=== PATIENT | female | born 2000 | race Caucasian/White ===

== ENCOUNTER 2021-07-18 17:11 | Observation (INO) ==
[2021-07-18 18:06] LABS: Basophils % 0.2 %; Hematocrit 36.1 % (35.3-44.9); Hemoglobin 12.1 g/dL (11.5-15.4); Immature Granulocytes % 0.4 % (0-4); Lymphocytes # 2.7 K/mcL (0.6-4.6); Lymphocytes % 24.4 %; Mean Corpuscular HGB Conc 33.5 g/dL (31.6-35.5); Mean Corpuscular Hemoglobin 30.6 pg (28.0-33.3); Mean Corpuscular Volume 91.2 fL (83.0-100.0); Monocytes # 0.9 K/mcL (0.0-1.3); Monocytes % 8.4 %; Neutrophils # 7.4 K/mcL (1.6-8.9); Platelet Count 302 K/mcL (140-400); Protein/Creatinine Ratio,Urine 0.12 mg/mg (0.00-0.20); Red Blood Count 3.96 M/mcL (3.82-4.97); Red Cell Distribution Width 13.2 % (11.5-14.5); Segmented Neutrophils % 66.6 %; White Blood Count 11.1 K/mcL (4.3-11.1)
[2021-07-18 18:14] LABS: Alanine Aminotransferase 12 Units/L (7-52); Aspartate Amino Transferase 12 Units/L (13-39); Lactate Dehydrogenase 140 Units/L (140-271); Uric Acid 3.2 mg/dL (2.3-7.6); eGFR For African Americans > 60 (> 60); eGFR For Non-African Americans > 60 (> 60)
== END 2021-07-18 19:05 | disposition home or self-care (01) ==
LOC: 1NENULAB
PROVIDERS: ADMIT Obstetrics & Gynecology; ATTEND Obstetrics & Gynecology

== ENCOUNTER 2021-07-20 04:47 | Inpatient (IN) ==
[2021-07-20] MEDS ORDERED: Famotidine 20 MG/2 ML VIAL IVP PRN (04:50)
[2021-07-20] MEDS ORDERED: *HR* Nalbuphine 10 MG/ML AMPUL IV PRN (04:50)
[2021-07-20] MEDS ORDERED: Azithromycin 500 MG in 0.9 % Sodium Chloride 250 ML IVPB PRN (04:50)
[2021-07-20] MEDS ORDERED: *HR* FentaNYL (PF) 100 MCG/2 ML VIAL IVP PRN (04:50)
[2021-07-20] MEDS ORDERED: Ondansetron 4 MG/2 ML VIAL IVP PRN (04:50)
[2021-07-20] MEDS ORDERED: Metoclopramide 10 MG/2 ML VIAL IVP PRN (04:50)
[2021-07-20] MEDS ORDERED: Lidocaine 1% 20 ML MDV INFILT PRN (04:50)
[2021-07-20] MEDS ORDERED: Naloxone 0.4 MG/ML INJ IVP PRN (04:50)
[2021-07-20] MEDS ORDERED: Ringers Solution, Lactated 1,000 ML IVC SCH (05:00)
[2021-07-20 05:17] VITALS: BP 122/85; PULSE 115; TEMP 98
[2021-07-20 05:33] LABS: Basophils % 0.1 %; Eosinophils % 0.1 %; Hematocrit 38.9 % (35.3-44.9); Hemoglobin 12.7 g/dL (11.5-15.4); Immature Granulocytes % 0.3 % (0-4); Lymphocytes # 1.9 K/mcL (0.6-4.6); Lymphocytes % 23.5 %; Mean Corpuscular HGB Conc 32.6 g/dL (31.6-35.5); Mean Corpuscular Hemoglobin 30.2 pg (28.0-33.3); Mean Corpuscular Volume 92.6 fL (83.0-100.0); Mean Platelet Volume 10.1 fL (9.4-12.4); Monocytes # 0.6 K/mcL (0.0-1.3); Neutrophils # 5.5 K/mcL (1.6-8.9); Platelet Count 295 K/mcL (140-400); Red Cell Distribution Width 13.2 % (11.5-14.5)
[2021-07-20 05:40] LABS: Amphetamine Screen,Urine Negative ng/mL (Cutoff=1000); Barbiturate Screen,Urine Negative ng/mL (Cutoff=200); Benzodiazepines Screen,Urine Negative ng/mL (Cutoff=200); Cannabinoid Screen,Urine Negative ng/mL (Cutoff = 50); Cocaine Screen,Urine Negative ng/mL (Cutoff= 300); Creatinine,Urine 131 mg/dL; Opiate Screen,Urine Negative ng/mL (Cutoff=300); Phencyclidine Screen,Urine Negative ng/mL (Cutoff=25); Protein/Creatinine Ratio,Urine 0.15 mg/mg (0.00-0.20)
[2021-07-20 05:50] LABS: Alanine Aminotransferase 13 Units/L (7-52); Aspartate Amino Transferase 14 Units/L (13-39); BUN/Creatinine Ratio 11 (6-26); Blood Urea Nitrogen 7 mg/dL (6-20); Lactate Dehydrogenase 135 Units/L (140-271); Uric Acid 3.4 mg/dL (2.3-7.6); eGFR For African Americans > 60 (> 60); eGFR For Non-African Americans > 60 (> 60)
[2021-07-20 06:16] LABS: Influenza A PCR Negative (Negative); Influenza B PCR Negative (Negative); Resp. Syncytial Virus PCR Negative (Negative)
[2021-07-20 06:26] LABS: SARS-CoV-2 by PCR (In House) Negative (Negative)
[2021-07-20 06:56] LABS: Glucose 182 mg/dL (70-105)
== END 2021-07-20 09:10 | disposition home or self-care (01) | DRG 955 ==
LOC: 1NENULAB 04:47
PROVIDERS: ADMIT Student in an Organized Health Care Education/Training Program; ATTEND Student in an Organized Health Care Education/Training Program

== ENCOUNTER 2021-08-01 22:08 | Inpatient (IN) ==
[2021-08-01] MEDS ORDERED: Lidocaine 1% 20 ML MDV INFILT PRN (22:25)
[2021-08-01] MEDS ORDERED: Famotidine 20 MG/2 ML VIAL IVP PRN (22:25)
[2021-08-01] MEDS ORDERED: Metoclopramide 10 MG/2 ML VIAL IVP PRN (22:25)
[2021-08-01] MEDS ORDERED: Ondansetron 4 MG/2 ML VIAL IVP PRN (22:25)
[2021-08-01] MEDS ORDERED: miSOPROStoL 25 MCG TABLET PO PRN (22:25)
[2021-08-01] MEDS ORDERED: Naloxone 0.4 MG/ML INJ IVP PRN (22:25)
[2021-08-01] MEDS ORDERED: Azithromycin 500 MG in 0.9 % Sodium Chloride 250 ML IVPB PRN (22:25)
[2021-08-01] MEDS ORDERED: Ringers Solution, Lactated 1,000 ML IVC SCH (22:30)
[2021-08-01] MEDS ORDERED: *HR* FentaNYL (PF) 100 MCG/2 ML VIAL EP ONE (22:44)
[2021-08-01] MEDS ORDERED: Ropivacaine/PF 0.2% 20 ML VIAL EP ONE (22:44)
[2021-08-01] MEDS ORDERED: EPHEDrine 50 MG/ML VIAL IVP PRN (22:44)
[2021-08-01] MEDS ORDERED: Epidural Premix (fent/bupiv) 110 ML EP SCH (22:45)
[2021-08-01 22:50] LABS: Basophils % 0.1 %; Hematocrit 37.7 % (35.3-44.9); Hemoglobin 12.5 g/dL (11.5-15.4); Immature Granulocytes % 0.2 % (0-4); Lymphocytes % 19.5 %; Mean Corpuscular HGB Conc 33.2 g/dL (31.6-35.5); Mean Corpuscular Hemoglobin 30.3 pg (28.0-33.3); Mean Corpuscular Volume 91.3 fL (83.0-100.0); Mean Platelet Volume 10.1 fL (9.4-12.4); Monocytes # 0.8 K/mcL (0.0-1.3); Monocytes % 7.8 %; Neutrophils # 7.4 K/mcL (1.6-8.9); Platelet Count 294 K/mcL (140-400); Red Blood Count 4.13 M/mcL (3.82-4.97); Red Cell Distribution Width 13.4 % (11.5-14.5); Segmented Neutrophils % 72.4 %; White Blood Count 10.2 K/mcL (4.3-11.1)
[2021-08-01 22:52] LABS: Amphetamine Screen,Urine Negative ng/mL (Cutoff=1000); Barbiturate Screen,Urine Negative ng/mL (Cutoff=200); Benzodiazepines Screen,Urine Negative ng/mL (Cutoff=200); Cannabinoid Screen,Urine Negative ng/mL (Cutoff = 50); Cocaine Screen,Urine Negative ng/mL (Cutoff= 300); Opiate Screen,Urine Negative ng/mL (Cutoff=300); Phencyclidine Screen,Urine Negative ng/mL (Cutoff=25); Protein/Creatinine Ratio,Urine 0.13 mg/mg (0.00-0.20)
[2021-08-01 23:02] LABS: Alanine Aminotransferase 11 Units/L (7-52); Aspartate Amino Transferase 12 Units/L (13-39); BUN/Creatinine Ratio 13 (6-26); Blood Urea Nitrogen 10 mg/dL (6-20); Lactate Dehydrogenase 142 Units/L (140-271); Uric Acid 3.8 mg/dL (2.3-7.6); eGFR For African Americans > 60 (> 60); eGFR For Non-African Americans > 60 (> 60)
[2021-08-01 23:25] LABS: Influenza A PCR Negative (Negative); Influenza B PCR Negative (Negative); Resp. Syncytial Virus PCR Negative (Negative)
[2021-08-01 23:45] LABS: SARS-CoV-2 by PCR (In House) Negative (Negative)
[2021-08-02] MEDS ORDERED: Oxytocin 20 units/ LR 1000 mL 20 UNIT/1,000 ML BAG IVC SCH ×2 (09:00→18:33)
[2021-08-02] MEDS: *HR* Nalbuphine 10 MG/ML AMPUL IV PRN ×2 (10:40→14:01)
[2021-08-02] MEDS ORDERED: *HR* Labetalol 20 MG/4 ML SYRINGE IVP ONE ×2 (15:35→15:36)
[2021-08-02] MEDS ORDERED: Calcium Gluconate 1,000 MG/10 ML VIAL IVP PRN ×2 (15:44→18:33)
[2021-08-02] MEDS ORDERED: Magnesium Sulf 20 gm/SW 500mL 20 GM/500 ML IV.SOLN IVC SCH ×2 (15:45→18:33)
[2021-08-02] MEDS ORDERED: Benzocaine/Menthol 56 GM AEROSOL SPRAY TP PRN (18:33)
[2021-08-02] MEDS ORDERED: Rho Immune Globulin 1,500 UNIT SYRINGE IM PRN (18:33)
[2021-08-02] MEDS ORDERED: Lanolin 7 G OINT...G. TP PRN (18:33)
[2021-08-02] MEDS ORDERED: Ondansetron ODT 4 MG TAB.RAPDIS SL PRN (18:33)
[2021-08-02] MEDS ORDERED: Measles/Mumps/Rubella Vacc 0.5 ML VIAL SQ PRN (18:33)
[2021-08-02] MEDS: Ibuprofen 600 MG TABLET PO SCH (20:56)
[2021-08-02] MEDS ORDERED: WELLBUTRIN 200 MG PO SCH (21:00)
[2021-08-02] MEDS: BuPROPion SR (12 HR) 100 MG TABLET PO SCH (22:16)
[2021-08-03] MEDS: Ibuprofen 600 MG TABLET PO SCH ×3 (03:00→17:46)
[2021-08-03 04:55] LABS: Basophils % 0.1 %; Hematocrit 33.9 % (35.3-44.9); Hemoglobin 11.2 g/dL (11.5-15.4); Immature Granulocytes % 0.5 % (0-4); Lymphocytes # 3.1 K/mcL (0.6-4.6); Lymphocytes % 17.5 %; Mean Corpuscular Hemoglobin 30.5 pg (28.0-33.3); Mean Corpuscular Volume 92.4 fL (83.0-100.0); Mean Platelet Volume 10.1 fL (9.4-12.4); Monocytes # 1.8 K/mcL (0.0-1.3); Monocytes % 9.9 %; Neutrophils # 12.8 K/mcL (1.6-8.9); Platelet Count 280 K/mcL (140-400); Red Blood Count 3.67 M/mcL (3.82-4.97); Red Cell Distribution Width 13.5 % (11.5-14.5)
[2021-08-03 04:57] LABS: White Blood Count 17.8 K/mcL (4.3-11.1)
[2021-08-03] MEDS: Acetaminophen 325 MG TABLET PO SCH ×4 (06:32→17:46)
[2021-08-03] MEDS: Prenatal Vit/FA 1 EACH TABLET PO SCH (07:40)
[2021-08-03] MEDS: BuPROPion SR (12 HR) 100 MG TABLET PO SCH ×2 (07:42→19:34)
[2021-08-04] MEDS: Prenatal Vit/FA 1 EACH TABLET PO SCH (07:59)
[2021-08-04] MEDS: BuPROPion SR (12 HR) 100 MG TABLET PO SCH (07:59)
[2021-08-04] MEDS: Acetaminophen 325 MG TABLET PO SCH ×2 (07:59)
[2021-08-04] MEDS: Ibuprofen 600 MG TABLET PO SCH ×2 (08:00)
[2021-08-04 08:27] VITALS: TEMP 98.5; O2SAT 98
[2021-08-04 12:04] VITALS: BP 131/87; PULSE 92
== END 2021-08-04 13:10 | disposition home or self-care (01) | DRG 560 ==
LOC: 1NENULAB 22:08 → 1NENUOBS 08-02 19:35
PROVIDERS: ADMIT Student in an Organized Health Care Education/Training Program; ATTEND Student in an Organized Health Care Education/Training Program